=== PATIENT | male | born 1985 | race African-American/Black ===

== ENCOUNTER 2016-10-19 04:49 | Inpatient (IN) | payer OTHER ==
[2016-10-19] VITALS (24 sets, daily range): BP systolic 79–153; BP diastolic 50–105
[~2016-10-19] VITALS: Ht 170.2 cm; Wt 86.2 kg
[2016-10-19 05:15] LABS: MEAN CORPUSCULAR HEMOGLOBIN 27.7 PG (27.0-31.0); MEAN CORPUSCULAR HGB CONC 33.8 G/DL (32.0-36.0); MEAN CORPUSCULAR VOLUME 82 FL (80-99); MEAN PLATELET VOLUME 9.7 FL (6.5-10.1); PLATELET COUNT 186 K/UL (150-450); RED BLOOD COUNT 6.14 M/UL (4.70-6.10); RED CELL DISTRIBUTION WIDTH 12.4 % (11.6-14.8); WHITE BLOOD COUNT 8.5 K/UL (4.8-10.8)
[2016-10-19] MEDS ORDERED: Diltiazem 25mg/5ml IV ONE ×2 (05:15→05:30)
[2016-10-19 05:30] LABS: ACETAMINOPHEN < 10 ug/mL (10-30); ALANINE AMINOTRANSFERASE 37 U/L (3-41); ALBUMIN/GLOBULIN RATIO 0.9 (1.0-2.7); ALCOHOL 207 mg/dL; ANION GAP 23 (5-15); ASPARTATE AMINO TRANSFERASE 22 U/L (5-40); CALCIUM 8.8 mg/dL (8.6-10.2); CARBON DIOXIDE 19 mEQ/L (20-30); CHLORIDE 96 mEQ/L (98-107); CREATININE 0.8 mg/dL (0.7-1.2); GLOMERULAR FILTRATION RATE > 60 mL/min (>60); HEMOLYSIS 4; POTASSIUM 3.3 mEQ/L (3.4-4.9); SODIUM 138 mEQ/L (135-145); TOTAL PROTEIN 8.3 g/dL (6.6-8.7)
[2016-10-19 05:33] LABS: TROPONIN I < 0.30 ng/mL (<=0.30)
[2016-10-19 05:41] LABS: THYROID STIMULATING HORMONE 0.005 uIU/mL (0.300-4.500)
[2016-10-19] MEDS ORDERED: Metoprolol 5mg/5ml Inj IVP SCH (05:45)
--- NOTE | 2016-10-19 05:53 | Emergency Room Report ---
History of Present Illness General Chief Complaint: Alcohol Intoxication Source: Significant Other, EMS (TRE SCHULER M.D.) Present Illness HPI 31-year-old male presents to ED for evaluation. Per EMS patient was drinking at his house and passed out. Friend called 911. Upon arrival patient is intoxicated. Upon arrival patient is tachycardic. Rhythm shows atrial fibrillation to the 170s. Friend at bedside states that patient has history of A. fib and thyroid problems. Patient has not been taking his medication for some time now. Patient is unable to provide any additional history at this time. No reported fevers or chills. No reported chest pain or shortness of breath. no other aggravating or relieving factors. No other associated symptoms (TRE SCHULER M.D.) Allergies: Coded Allergies: No Known Allergies (Unverified , 10/19/16) Patient History Past Medical History: AFib, other - thyroid Past Surgical History: none Pertinent Family History: none Social History: Reports: alcohol use, Denies: drug use, smoking Immunizations: UTD Reviewed Nursing Documentation: PMH: Agreed, PSxH: Agreed (TRE SCHULER M.D.) Nursing Documentation-PMH Hx Cardiac Problems: Yes - AFIB (TRE SCHULER M.D.) Review of Systems All Other Systems: negative except mentioned in HPI (TRE SCHULER M.D.) Physical Exam Vital Signs Date Time Temp Pulse Resp B/P Pulse Ox O2 Delivery O2 Flow Rate FiO2 10/19/16 04:48 98.1 158 18 122/73 96 Room Air Sp02 EP Interpretation: reviewed, normal General Appearance: lethargic Head: normocephalic Eyes: bilateral eye PERRL, bilateral eye normal inspection ENT: normal ENT inspection Neck: normal inspection Respiratory: chest non-tender, lungs clear, normal breath sounds, speaking full sentences Cardiovascular #1: tachycardia Gastrointestinal: normal inspection Rectal: deferred Genitourinary: no CVA tenderness Musculoskeletal: normal inspection Neurologic: other - altered Psychiatric: other - altered Skin: normal inspection Lymphatic: normal inspection (TRE SCHULER M.D.) Medical Decision Making Diagnostic Impression: Primary Impression: Atrial fibrillation with rapid ventricular response Additional Impression: Acute alcoholic intoxication Qualified Codes: F10.129 - Alcohol abuse with intoxication, unspecified ER Course Received signout from Dr Schuler to admit patient HR is 110-120. BP stable. Patient asymptomatic Patient approved for admission to Panel. Dr Castañeda accepting on behalf of Dr Sepulveda at 809am Requesting free T4 and Mg levels which I ordered She also requested JOSE admission which we placed (JESSICA GAMEZ M.D.) EKG Diagnostic Results Rate: tachycardiac - afib with RVR Rhythm: other - afib ST Segments: no acute changes ASA given to the pt in ED: No (TRE SCHULER M.D.) Rhythm Strip Diag. Results EP Interpretation: yes Rhythm: NSR, no PVC's, no ectopy (TRE SCHULER M.D.) Last Vital Signs Date Time Temp Pulse Resp B/P Pulse Ox O2 Delivery O2 Flow Rate FiO2 10/19/16 05:28 155 103/45 10/19/16 05:14 98.1 18 96 Room Air Status: improved (TRE SCHULER M.D.) Disposition: ADMITTED INPATIENT Condition: Critical TRE SCHULER M.D. Oct 19, 2016 05:53 JESSICA GAMEZ M.D. Oct 19, 2016 08:10
[2016-10-19] MEDS ORDERED: UNOBMED (06:29)
[2016-10-19] MEDS ORDERED: Metoprolol 25mg tab ORAL ONE (08:15)
[2016-10-19] MEDS ORDERED: Methimazole 5mg tab ORAL SCH ×2 (09:00→13:45)
[2016-10-19] MEDS ORDERED: Hydrocortisone 100mg Inj IV ONE (09:00)
--- NOTE | 2016-10-19 09:20 | Emergency Room Report ---
History of Present Illness General Chief Complaint: Alcohol Intoxication Source: Significant Other, EMS Present Illness Allergies: Coded Allergies: No Known Allergies (Unverified , 10/19/16) Nursing Documentation-PMH Hx Cardiac Problems: Yes - AFIB Physical Exam Vital Signs Date Time Temp Pulse Resp B/P Pulse Ox O2 Delivery O2 Flow Rate FiO2 10/19/16 04:48 98.1 158 18 122/73 96 Room Air Procedures Critical Care Time Critical Care Time CC Time: 35 minutes 31YOM with history of hyperthyroid, non-compliant with methimazole Acute ETOH intox Found to be in Atrial fib with RVR, refractory to Dilt, lopressor Low TSH, elevated free T4 Alvarado/Wartofsky score of 65 suggestive of thyroid storm Tx includes Esmolol gtt, hydrocortisone, methimazole, potassium iodide 1 hour after methimazole Endorsed to ICU CC time includes discussion with hospitalist, review of labs, imaging, previous ED physician charting Does not include procedures Medical Decision Making Diagnostic Impression: Primary Impression: Atrial fibrillation with rapid ventricular response Additional Impressions: Acute alcoholic intoxication Qualified Codes: F10.129 - Alcohol abuse with intoxication, unspecified Thyrotoxicosis Qualified Codes: E05.90 - Thyrotoxicosis, unspecified without thyrotoxic crisis or storm Hyperthyroidism Thyroid storm Qualified Codes: E05.91 - Thyrotoxicosis, unspecified with thyrotoxic crisis or storm ER Course After review of labs, patient has markedly low TSH and elevated T4 HR has been refractory to Dilt and Metoprolol Concern for thyrotoxicosis. No sign of goiter Alvarado/Wartofsky score of 65 suggestive of thyroid storm Points: HR 140 (25 - Will tx with hydrocortisone to block T4 to T3 conversion - Will tx with methimazole to inhibit further hormone release - CXR suggestive of ILD pattern, cardiomegaly, pulm edema. Will give Lasix - In discussion with Dr Castañeda, will also give empiric Abx to cover for possible infection as cause. No obvious Lobar PNA on CXR; UA is pending - Will start esmolol gtt - Upgrade to ICU - Dr Castañeda to consult Human Capital Analyst EKG Diagnostic Results Rate: tachycardiac, other - atrial fib with RVR ST Segments: no acute changes Rhythm Strip Diag. Results EP Interpretation: yes Rate: 147 Rhythm: no PVC's, no ectopy Chest X-Ray Diagnostic Results EP Interpretation: Yes Findings: no pneumothorax, other - Cardiomegaly, pulm edema Number of Views: 1 Last Vital Signs Date Time Temp Pulse Resp B/P Pulse Ox O2 Delivery O2 Flow Rate FiO2 10/19/16 08:39 131 108/74 10/19/16 08:30 18 97 Room Air 10/19/16 07:15 98.0 Status: improved Disposition: ADMITTED INPATIENT Condition: Critical Referrals: NON PHYSICIAN (PCP) JESSICA GAMEZ M.D. Oct 19, 2016 09:20
[2016-10-19] MEDS ORDERED: LORazepam Inj 2mg/ml 1ml IV PRN (10:45)
[2016-10-19] MEDS ORDERED: Metoclopramide 10mg/2ml Inj IVP ONE (10:45)
[2016-10-19] MEDS ORDERED: Thiamine HCl 100 MG, Folic Acid 1 MG, Magnesium Sulfate 2,000 MG, Multivitamin - 12 Inj... IV ONE ×5 (10:45)
[2016-10-19] MEDS ORDERED: Aspirin EC 81mg tab ORAL SCH (11:30)
[2016-10-19] MEDS ORDERED: Zosyn 3.375gm inj ONE (11:36)
[2016-10-19] MEDS: Enoxaparin 100mg Inj SUBQ SCH ×2 (11:40→22:19)
[2016-10-19] MEDS ORDERED: Piperacillin/Tazobactam 3.375 GM in NS 110 ML IVPB ONE (12:00)
[2016-10-19] MEDS ORDERED: Thiamine HCl 100mg/ml Inj ONE (12:04)
[2016-10-19] MEDS ORDERED: [UNRECOGNIZED DRUG - OTHER] IV SCH ×8 (13:00)
[2016-10-19] MEDS ORDERED: MULTIVITAMIN IV SCH (13:00)
[2016-10-19] MEDS ORDERED: Thiamine 100 MG ivpb IVPB SCH ×2 (13:00)
[2016-10-19] MEDS ORDERED: MAGNESIUM SULFATE IV SCH (13:00)
[2016-10-19] MEDS ORDERED: FOLIC ACID IV SCH (13:00)
[2016-10-19] MEDS ORDERED: [UNRECOGNIZED DRUG - OTHER] IV SCH (13:00)
--- NOTE | 2016-10-19 15:41 | Cardiology Progress Note ---
Subjective Subjective [id number] Objective Last 24 Hour Vital Signs Date Time Temp Pulse Resp B/P Pulse Ox O2 Delivery O2 Flow Rate FiO2 10/19/16 15:00 157 10/19/16 15:00 98.9 155 30 123/78 98 Room Air 10/19/16 11:00 97.3 131 18 104/86 100 Room Air 10/19/16 10:00 130 20 102/85 97 Room Air 10/19/16 09:30 142 22 119/93 99 Room Air 10/19/16 09:00 133 19 116/91 97 Room Air 10/19/16 08:39 131 108/74 10/19/16 08:30 134 18 128/99 97 Room Air 10/19/16 08:27 131 19 108/74 97 Room Air 10/19/16 08:00 133 17 120/60 95 Room Air 10/19/16 07:35 131 20 134/51 95 Room Air 10/19/16 07:15 98.0 117 14 100/75 97 Room Air 10/19/16 06:44 98.1 106 12 79/50 95 Room Air 10/19/16 05:52 135 120/68 10/19/16 05:48 98.1 141 18 120/68 97 Room Air 10/19/16 05:28 155 103/45 10/19/16 05:14 98.1 180 18 112/70 96 Room Air 10/19/16 05:13 180 112/70 10/19/16 04:48 98.1 158 18 122/73 96 Room Air Intake and Output 10/18/16 10/19/16 19:00 07:00 Intake Total 2000 ml Output Total 200 ml Balance 1800 ml IV Total 2000 ml Output Urine Total 200 ml # Voids 1 Laboratory Tests Test 10/19/16 05:10 10/19/16 05:41 White Blood Count 8.5 K/UL (4.8-10.8) Red Blood Count 6.14 M/UL (4.70-6.10) H Hemoglobin 17.0 G/DL (14.2-18.0) Hematocrit 50.4 % (42.0-52.0) Mean Corpuscular Volume 82 FL (80-99) Mean Corpuscular Hemoglobin 27.7 PG (27.0-31.0) Mean Corpuscular Hemoglobin Concent 33.8 G/DL (32.0-36.0) Red Cell Distribution Width 12.4 % (11.6-14.8) Platelet Count 186 K/UL (150-450) Mean Platelet Volume 9.7 FL (6.5-10.1) Neutrophils (%) (Auto) % (45.0-75.0) Lymphocytes (%) (Auto) % (20.0-45.0) Monocytes (%) (Auto) % (1.0-10.0) Eosinophils (%) (Auto) % (0.0-3.0) Basophils (%) (Auto) % (0.0-2.0) Sodium Level 138 mEQ/L (135-145) Potassium Level 3.3 mEQ/L (3.4-4.9) L Chloride Level 96 mEQ/L (98-107) L Carbon Dioxide Level 19 mEQ/L (20-30) L Anion Gap 23 (5-15) H Blood Urea Nitrogen 9 mg/dL (7-23) Creatinine 0.8 mg/dL (0.7-1.2) Estimat Glomerular Filtration Rate > 60 mL/min (>60) Glucose Level 151 mg/dL (74-106) H Calcium Level 8.8 mg/dL (8.6-10.2) Magnesium Level 1.7 mg/dL (1.7-2.5) Total Bilirubin 0.3 mg/dL (0.0-1.2) Aspartate Amino Transf (AST/SGOT) 22 U/L (5-40) Alanine Aminotransferase (ALT/SGPT) 37 U/L (3-41) Alkaline Phosphatase 114 U/L (40-129) Troponin I < 0.30 ng/mL (<=0.30) Total Protein 8.3 g/dL (6.6-8.7) Albumin 4.1 g/dL (3.5-5.2) Globulin 4.2 g/dL Albumin/Globulin Ratio 0.9 (1.0-2.7) L Thyroid Stimulating Hormone (TSH) 0.005 uIU/mL (0.300-4.500) Free Thyroxine 4.64 ng/dL (0.86-1.85) H Salicylates Level < 1 mg/dL (10-30) L Acetaminophen Level < 10 ug/mL (10-30) L Serum Alcohol 207 mg/dL Urine Opiates Screen Negative (NEGATIVE) Urine Barbiturates Screen Negative (NEGATIVE) Phencyclidine (PCP) Screen Negative (NEGATIVE) Urine Amphetamines Screen Negative (NEGATIVE) Urine Benzodiazepines Screen Negative (NEGATIVE) Urine Cocaine Screen Negative (NEGATIVE) Urine Marijuana (THC) Screen Negative (NEGATIVE) COLEEN PULIDO Oct 19, 2016 15:41
[2016-10-19] MEDS: KCl 10% 40mEq/30ml liquid NG SCH (15:58)
[2016-10-19] MEDS: Propranolol 40mg tab ORAL SCH ×2 (16:21→22:06)
[2016-10-19] MEDS: Pantoprazole Inj IVP SCH (18:05)
[2016-10-19 18:29] LABS: TROPONIN I < 0.30 ng/mL (<=0.30)
--- NOTE | 2016-10-19 19:49 | History and Physical Report ---
DATE OF ADMISSION: 10/19/2016 CHIEF COMPLAINT: Alcohol intoxication, AFib and RVR, nausea, and vomiting. HISTORY OF PRESENT ILLNESS: This is a 31-year-old man with history of chronic alcoholic, hyperthyroid not adherent with methimazole, AFib on aspirin, not adherent the medication and then not on anticoagulant, and bipolar disorder. The patient was sent by the EMS for nausea and vomiting. I saw the patient in the ER and according to the patient's , he drank binge of alcohol yesterday with hang-on with a friend and then since last night, he started vomiting and it continued this morning, so they called 911 and they sent the patient to the ER. In the ER, the patient was found to have tachycardia with AFib with RVR, heart rate of 170. The patient got Cardizem drip. The tachycardia was not resolved, which was improved a little bit with metoprolol and the patient was also found to have very low TSH and high free T4. The ER attending gave hydrocortisone and also methimazole and esmolol drip. The patient had vomiting in front of me and the patient states that he has been diagnosed with AFib with RVR in 2009, but he is not taking any medication because he does not like metoprolol and also he was diagnosed with hyperthyroidism since 2006 and he is on methimazole and a couple of days ago, the patient had diarrhea and no more diarrhea at all. Denies any chest pain, any abdominal pain, headache, or dizziness. According to the ER attending, the chest x-ray showed that the patient has pulmonary edema and Lasix was planned to be given. PAST MEDICAL HISTORY: 1. Chronic alcoholic, started drinking at age of 23 and once a week per and huge drink yesterday. 2. AFib, not on any anticoagulant and not adherent with any aspirin or metoprolol. 3. Hyperthyroidism, not adherent on methimazole. 4. Bipolar disorder. 5. Depression disorder. PAST SURGICAL HISTORY: None. ALLERGIES: No known drug allergies. MEDICATIONS: Home medication, the patient is supposed to take aspirin, metoprolol, and methimazole, but never adherent with medication. FAMILY HISTORY: No thyroid problem in the family and no heart issue in the family. SOCIAL HISTORY: The patient is a chronic smoker, smoked at the age of 17, smoker of one pack a day. Chronic alcoholic, once a week, and huge drink was yesterday. Denies any marijuana or opiate use. REVIEW OF SYSTEMS: Fourteen-point ROS was negative except as in the HPI. PHYSICAL EXAMINATION: VITAL SIGNS: Blood pressure 108/74, heart rate 113, respiratory rate 18, oxygen saturation 97% on room air, and temperature 98 degrees. GENERAL: The patient is not in acute distress. The patient has intractable vomiting. Alert, awake, and oriented x3. HEENT: Atraumatic and normocephalic. NECK: Supple. Trachea is in the midline. LUNGS: Bilateral basilar crackles present. CARDIOVASCULAR: S1 and S2. Irregularly irregular. No murmur, rub, or gallop. ABDOMEN: Soft and nontender. Bowel sounds present. EXTREMITIES: No edema. NEUROLOGIC: Mild hand tremor present and tremor present. LABORATORY AND DIAGNOSTIC DATA: White count 8.5, hemoglobin 17.0, and platelet count 186,000. Sodium 138, potassium 3.3, chloride 96, bicarbonate 19, BUN 9, creatinine 0.8, and glucose 151. TSH 0.005 and free T4 is 4.64. Magnesium 1.7. Calcium 8.8. The urine drug screen negative. His alcohol is 207. ASSESSMENT: 1. Alcohol intoxication. 2. Atrial fibrillation with rapid ventricular response. 3. Thyroid storm. 4. History of thyroid and not adherent on the medication. 5. History of atrial fibrillation, not adherent with the medication and not on anticoagulant. 6. Bipolar disorder. 7. Depression. 8. Metabolic acidosis. 9. Intractable nausea and vomiting. PLAN: IV fluids and also banana bag. Endocrinology consult and cardiology consult. We will continue steroid, antibiotic, and also methimazole. Echocardiogram. I also discussed and educated for the smoking and also alcohol drinking, and the importance of the adherence of the medications especially for the thyroid and AFib to the patient and the . We would admit the patient to the ICU. Love Cielo Neal M.D. DR: IRMA JOB#: [id number] CC: DIDI
[2016-10-19] MEDS ORDERED: Heparin 5000 units/ml inj SUBQ SCH (21:00)
--- NOTE | 2016-10-19 21:59 | Consultation ---
DATE OF CONSULTATION: CARDIOLOGY CONSULTATION CONSULTING PHYSICIAN: Daisha Beck M.D. PATIENT IDENTIFICATION: The patient is a 31-year-old male. REASON FOR EVALUATION: Atrial fibrillation with rapid ventricular rate. HISTORY OF PRESENT ILLNESS: The history of present illness is taken from the patient, who is slightly lethargic but arousable and appropriate. He told me that he drinks alcohol, lots of whisky every weekend and he goes in atrial fibrillation at times, but it then goes back normal. He does not drink during the weekdays and does not drink anything else. He denies use of any other recreational drugs, but he smokes cigarette. Yesterday, he had used whisky and then he started feeling these palpitations, which would not go away. He also said that his doctor told him to take methimazole because of his thyroid issues, but he did not regularly take it and he also was given metoprolol also because of his atrial fibrillation. PAST MEDICAL HISTORY: Otherwise is unremarkable. He has some tendon injury. PAST SURGICAL HISTORY: Tendon surgery. ALLERGIES: Known. MEDICATIONS: Prescribed methimazole and metoprolol, but he is not compliant. HABITS: As in the history of present illness. SOCIAL HISTORY: He is independent. REVIEW OF SYSTEMS: There is no fever, no cough, and no sputum production. No any positives. PHYSICAL EXAMINATION: GENERAL: This is a comfortable-appearing gentleman, resting. VITAL SIGNS: Blood pressure 114/65 and a heart rate of 156. His temperature is normal. His oxygen saturation is 98% on room air. HEENT: PERRLA. Extraocular muscles intact. NECK: Supple. Thyroid is nontender, diffusely slightly enlarged. No nodules palpable. Carotid, normal upstroke. Neck veins are not distended. LUNGS: Few crackles. HEART: Regular with accented A2, rapid. There is no S3 audible. PMI is in the sixth intercostal space in midclavicular line. ABDOMEN: Soft, nontender. Bowel sounds are present. EXTREMITIES: Lower extremities, no edema. Distal pulses palpable bilaterally. NEUROLOGICAL: He is intact. DIAGNOSTIC DATA: His EKG shows left ventricular hypertrophy with a heart rate of 180 beats per minute. Chest x-ray, I could not see it, but it apparently by the ER report showed pulmonary venous congestion. LABORATORY DATA: His laboratories are all reviewed. His potassium was 3.3. His glucose was 151. Albumin is 0.9. TSH is 0.005, T4 is 464. His CBC is unremarkable. He has positive alcohol in his blood. IMPRESSION AND RECOMMENDATION: Atrial fibrillation with a rapid ventricular rate caused by most likely hyperthyroidism and probably precipitated also by alcohol. By physical exam, there is no evidence of overt heart failure. I am going to give him Inderal for his hyperthyroidism and atrial fibrillation digoxin and he already was on anticoagulation. We are going to check his troponin, we will follow his echocardiogram. 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 Magnesium was 1.7. This is an intensive care unit level of care for this patient. I also discussed with him the importance of compliance with medications and to quit alcohol drinking and smoke. More than one hour was spent. Daisha Beck M.D. DR: SCARLET JOB#: [id number] CC:
[2016-10-19] MEDS: Zosyn 3.375gm q8h **Extended infusion IVPB SCH ×2 (22:07)
[2016-10-19] MEDS: D5 1/2NS w/KCl 20mEq 1,000 ML IV SCH (22:20)
[2016-10-20] VITALS (14 sets, daily range): BP systolic 109–144; BP diastolic 58–96
[2016-10-20 02:28] LABS: BASOPHILS % (AUTO) 0.8 % (0.0-2.0); EOSINOPHILS % (AUTO) 0.3 % (0.0-3.0); LYMPHOCYTES % (AUTO) 53.3 % (20.0-45.0); MEAN CORPUSCULAR HEMOGLOBIN 27.4 PG (27.0-31.0); MEAN CORPUSCULAR HGB CONC 33.6 G/DL (32.0-36.0); MEAN CORPUSCULAR VOLUME 82 FL (80-99); MEAN PLATELET VOLUME 9.3 FL (6.5-10.1); MONOCYTES % (AUTO) 8.2 % (1.0-10.0); NEUTROPHILS % (AUTO) 37.6 % (45.0-75.0); PLATELET COUNT 168 K/UL (150-450); RED BLOOD COUNT 5.22 M/UL (4.70-6.10); RED CELL DISTRIBUTION WIDTH 12.6 % (11.6-14.8); WHITE BLOOD COUNT 9.6 K/UL (4.8-10.8)
[2016-10-20 02:40] LABS: TROPONIN I < 0.30 ng/mL (<=0.30)
[2016-10-20 02:44] LABS: ANION GAP 12 (5-15); CALCIUM 8.9 mg/dL (8.6-10.2); CARBON DIOXIDE 25 mEQ/L (20-30); CHLORIDE 102 mEQ/L (98-107); CREATININE 0.8 mg/dL (0.7-1.2); GLOMERULAR FILTRATION RATE > 60 mL/min (>60); HEMOLYSIS 6; MAGNESIUM 1.9 mg/dL (1.7-2.5); PHOSPHORUS 3.4 mg/dL (2.5-4.8); POTASSIUM 4.5 mEQ/L (3.4-4.9); SODIUM 139 mEQ/L (135-145)
[2016-10-20] MEDS ORDERED: PROPRANOLOL 80 MG ORAL SCH ×2 (06:00→08:00)
[2016-10-20] MEDS: Zosyn 3.375gm q8h **Extended infusion IVPB SCH ×2 (06:10)
[2016-10-20] MEDS: D5 1/2NS w/KCl 20mEq 1,000 ML IV SCH (06:11)
[2016-10-20] MEDS: Propylthiouracil 50mg tab ORAL SCH ×2 (07:29→12:36)
[2016-10-20] MEDS: Pantoprazole Inj IVP SCH (08:59)
[2016-10-20] MEDS ORDERED: Propranolol 40mg tab ORAL SCH (09:00)
[2016-10-20] MEDS: KCl 10% 40mEq/30ml liquid NG SCH (09:00)
[2016-10-20] MEDS: Enoxaparin 100mg Inj SUBQ SCH (09:01)
--- NOTE | 2016-10-20 09:13 | Cardiology Report ---
APPROVED REPORT EXAM: Two-dimensional and M-mode echocardiogram with Doppler and color Doppler. INDICATION Atrial Fibrillation M-Mode DIMENSIONS IVSd0.8 (0.7-1.1cm)Left Atrium (MM)3.9 (1.6-4.0cm) LVDd4.7 (3.5-5.6cm)Aortic Root2.7 (2.0-3.7cm) PWd0.8 (0.7-1.1cm)Aortic Cusp Exc.2.1 (1.5-2.0cm) LVDs3.1 (2.5-4.0cm) PWs1.1 cm Normal left ventricular chamber size, systolic function and wall motion. Left ventricular ejection fraction estimated to be 55-60 %. Mild left ventricular hypertrophy. No evidence of pericardial fat or effusion. Right cardiac chamber sizes are within normal limits. Mild left atrial enlargement by 2D. Focal aortic valve sclerosis with adequate cusp excursion Thickened mitral valve leaflets with normal excursion. Mild mitral annulus and aortic root calcification. Pulmonic valve is well visualized. Normal tricuspid valve structure. IVC is normal in size with physiologic collapse. A color flow and spectral Doppler study was performed and revealed: No aortic regurgitation. No mitral regurgitation. Left ventricular diastolic dysfunction not obtainable due to A-FIB. Moderate tricuspid regurgitation. Tricuspid systolic velocities suggests peak right ventricular systolic pressure of 46 mmHg Consistent with moderate pulmonary hypertension. Pulmonic regurgitation present.
--- NOTE | 2016-10-20 10:03 | Cardiology Report ---
APPROVED REPORT EKG Measurement Heart [id number] Atrial fibrillation with rapid ventricular response Single VPC Early repolarization Abnormal ECG
[2016-10-20 10:36] LABS: TROPONIN I < 0.30 ng/mL (<=0.30)
--- NOTE | 2016-10-20 10:53 | Diagnostic Imaging Report ---
Clinical history: Cough, acute dyspnea, reported history of thyrotoxicosis. Technique: Portable AP chest radiograph was obtained. Comparison: None Findings: Lung volumes are low with probable basilar atelectasis. The cardiomediastinal silhouette appears mildly enlarged. Scattered interstitial opacities throughout both lungs may represent mild interstitial edema or interstitial pneumonia. There is no clinically significant pneumothorax or pleural effusion. The bony thorax is unremarkable. Impression: Suspected mild cardiomegaly with mild interstitial edema or interstitial pneumonia in the setting of low lung volumes. Consider clinical correlation and short-term followup PA and lateral chest radiographs in full inspiration for a more optimal evaluation.
--- NOTE | 2016-10-20 14:17 | General Progress Note ---
Assessment/Plan Assessment/Plan No evidence of "Thyroid Storm" per Endo as no AMS or fever. OK to DC home on PTU and Inderal Subjective Allergies: Coded Allergies: No Known Allergies (Unverified , 10/19/16) Subjective No c/o Objective Last 24 Hour Vital Signs Date Time Temp Pulse Resp B/P Pulse Ox O2 Delivery O2 Flow Rate FiO2 10/20/16 13:00 99 12 119/79 100 Room Air 10/20/16 12:00 97.9 136 22 109/71 96 Room Air 10/20/16 12:00 146 10/20/16 11:00 135 18 124/92 98 Room Air 10/20/16 10:00 137 22 120/90 96 Room Air 10/20/16 09:00 142 144/96 10/20/16 09:00 125 18 138/86 98 Room Air 10/20/16 08:00 139 10/20/16 08:00 97.9 140 24 144/96 97 Room Air 10/20/16 07:00 142 20 130/85 97 Room Air 10/20/16 06:00 137 22 132/92 97 Room Air 10/20/16 05:00 141 22 124/71 97 Room Air 10/20/16 04:00 98.6 142 24 121/73 97 Room Air 10/20/16 04:00 142 10/20/16 03:00 142 24 122/72 98 Room Air 10/20/16 02:00 141 26 130/85 98 Room Air 10/20/16 01:00 138 21 144/87 98 Room Air 10/20/16 00:00 139 10/20/16 00:00 136 23 114/58 97 Room Air 10/19/16 23:00 132 24 118/62 99 Room Air 10/19/16 22:06 156 138/94 10/19/16 22:00 156 27 138/94 94 Room Air 10/19/16 21:00 153 27 128/105 98 Room Air 10/19/16 20:00 97.9 157 24 116/53 97 Room Air 10/19/16 20:00 157 10/19/16 19:00 135 25 112/77 97 Room Air 10/19/16 18:00 148 28 133/61 97 Room Air 10/19/16 17:00 150 28 138/54 98 Room Air 10/19/16 16:21 152 153/62 2/19/17 16:00 152 10/19/16 16:00 98.0 152 28 153/62 97 Room Air 10/19/16 15:00 157 10/19/16 15:00 98.9 155 30 123/78 98 Room Air 10/19/16 14:30 97.3 151 22 123/97 99 Room Air Intake and Output 10/19/16 10/20/16 19:00 07:00 Intake Total 2343.4 ml 1687.5 ml Output Total 1501 ml 1200 ml Balance 842.4 ml 487.5 ml Intake Oral 1250 ml 350 ml IV Total 1093.4 ml 1337.5 ml Output Urine Total 1500 ml 1200 ml Stool Total 1 ml # Voids 3 2 Laboratory Tests 10/19/16 17:46: Pro-B-Type Natriuretic Peptide 446H 10/19/16 17:50: Troponin I < 0.30 10/20/16 02:00: Troponin I < 0.30, White Blood Count 9.6, Red Blood Count 5.22, Hemoglobin 14.3 , Hematocrit 42.6, Mean Corpuscular Volume 82, Mean Corpuscular Hemoglobin 27.4 , Mean Corpuscular Hemoglobin Concent 33.6, Red Cell Distribution Width 12.6, Platelet Count 168, Mean Platelet Volume 9.3, Neutrophils (%) (Auto) 37.6L, Lymphocytes (%) (Auto) 53.3H, Monocytes (%) (Auto) 8.2, Eosinophils (%) (Auto) 0.3, Basophils (%) (Auto) 0.8, Sodium Level 139, Potassium Level 4.5, Chloride Level 102, Carbon Dioxide Level 25, Anion Gap 12, Blood Urea Nitrogen 7, Creatinine 0.8, Estimat Glomerular Filtration Rate > 60, Glucose Level 108H, Calcium Level 8.9, Phosphorus Level 3.4, Magnesium Level 1.9 10/20/16 10:00: Troponin I < 0.30 Height (Feet): 5 Height (Inches): 7.00 Weight (Pounds): 190 Objective Cv RR Lungs CTa Abd SNT. BS + E No CCE ALICIA YANEZ Oct 20, 2016 14:17
[2016-10-20] MEDS ORDERED: Tubing IV Secondary IV ONE (14:52)
--- NOTE | 2016-10-21 13:58 | Discharge Summary ---
Discharge Summary Hospital Course Date of Admission Oct 19, 2016 at 07:26 Date of Discharge Oct 20, 2016 at 14:53 Admitting Diagnosis afib, Thyrotoxicosis HPI Jann Norris is a 31 year old male who was admitted on Oct 19, 2016 at 07:26 for Afib, Thyrotoxicosis Hospital Course DC SUMMARY DICTATED # [id number] scripts given for PTU 100 mg po q6 Propranolol 80 mg q 8 Coumadin 3 mg po daily fup with PMD on Thursday for INR check up Discharge Condition Upon Discharge: stable Discharge Disposition Patient was discharged to Home () Discharge Diagnoses: Butch ([facility]),Dejah SCHROEDER Oct 21, 2016 13:58
--- NOTE | 2016-10-21 13:59 | Discharge Instructions ---
Discharge Instructions Discharge Instructions Follow up with: PMD on Thursday for INR check Call MD/Return to Hospital if: palpiattiaons, chest pain, SOB, bleeding Diet: regular Activity: as tolerated Special Instructions stop alcohol For Congestive Heart Failure Reminder Report to your physician any weight gain of 5 pounds or more in one week. Butch ([facility]),Dejah SCHROEDER Oct 21, 2016 13:59
--- NOTE | 2016-10-22 03:28 | Discharge Summary 2 SIG ---
DATE OF ADMISSION: 10/19/2016 DATE OF DISCHARGE: 10/20/2016 The patient was admitted under Dr. Beatty. REASON FOR ADMISSION: 31-year-old male presented to emergency room for evaluation. Per paramedics, the patient was drinking at his home and passed out. His friend called paramedics. Upon arrival, the patient was intoxicated and tachycardic. Rhythm strip revealed atrial fibrillation with rapid ventricular response. Heart rate was 170. Friend reported that the patient had history of atrial fibrillation, thyroid problem, and was not always compliant with the medication regimen. At the time of arrival to the emergency department, the patient was not able to provide much of additional information. He reported no fevers. No chills. No chest pain. No shortness of breath. Workup in the emergency room revealed tachycardia 158, low TSH, and high free T4. TSH was 0.005 and free T4 was 4.64. No leukocytosis. Stable hemoglobin and hematocrit. Heart rate was refractory to metoprolol and diltiazem. EKG in ER revealed atrial fibrillation with rapid ventricular response. Urine tox screen was negative. Serum alcohol level elevated to 207. Chest x-ray revealed mild cardiomegaly with mild interstitial edema or interstitial pneumonia. Patient was afebrile. The patient was given one dose of hydrocortisone and one dose of methimazole . Started on esmolol drip for thyroid storm and transferred to ICU for further management. ADMITTING DIAGNOSES: Includes, 1. Atrial fibrillation with rapid ventricular response. 2. Acute alcohol intoxication. 3. Thyrotoxicosis. 4. Possible thyroid storm. 5. Hyperthyroidism. HOSPITAL COURSE: The patient admitted to intensive care unit. The patient was started on IV fluids with a banana bag. Endocrinology and Cardiology consult were requested. The patient was started on empiric antibiotics to cover for possible pneumonia. Chemist Intern seen the patient and placed him on Inderal. According to the urban design consultant, the patient was not in thyroid storm. Continue new adjusted dose of Methimazole and Inderal at home. Chemist Intern cleared the patient for discharge. Magazine Keeper seen the patient. Echocardiogram revealed preserved ejection fraction of 55% to 60% and right ventricular systolic pressure of 46 consistent with moderate pulmonary hypertension. There was also evidence of moderate tricuspid regurgitation and mild left ventricular hypertrophy. Digoxin was given to control the heart rate by tie binder. Prior to discharge, the patient's heart rate was 99. He had no tachypnea. Blood pressure was stable. Pulse oximetry 100% on room air. The patient was cleared for discharge by urban design consultant, who concluded that patient was not in the thyroid storm. . Mental status back to baseline. The patient was counseled on abstinence from the alcohol and compliance with the medication regimen. Due to the rapid and unexpected improvement in the patient's condition, the patient was discharged home in one day DISCHARGE DIAGNOSES: 1. Atrial fibrillation with rapid ventricular response. 2. Acute alcohol intoxication. 3. Thyrotoxicosis. 4. Possible thyroid storm. 5. Hyperthyroidism. 6. Moderate pulmonary hypertension. 7. Moderate tricuspid regurgitation. 8. Bipolar disorder with depression. DISCHARGE MEDICATIONS: See medication reconciliation list. DISCHARGE INSTRUCTIONS: The patient was discharged home. Followup with the primary medical doctor. Encouraged compliance with methimazole, Inderal, as well as cardiac medications. The patient needs to continue anticoagulation (Lovenox and Coumadin) , which he has at home. Fup with PCP in 2-3 days for INR check, Anjana Beatty M.D. I have been assigned to dictate discharge summary on this account and I was not involved in the patient's management. Dejah LaurentNewyork-Presbyterian Lower Manhattan HospitalSussy N.PVijay DR: SANTOS JOB#: [id number] CC: DIDI
== END 2016-10-20 14:53 | disposition home or self-care (01) | DRG 308 ==
LOC: EDBD 04:49 → EMR 06:05 → EDBEDREQ 06:35 → ICU 07:26 → EDBEDREQ 08:57 → EDBEDREQSVC 09:38 → EDBEDREQ 09:39
DX: I48.91 Unspecified atrial fibrillation (principal); E05.91 Thyrotoxicosis, unspecified with thyrotoxic crisis or storm; F10.129 Alcohol abuse with intoxication, unspecified; F31.9 Bipolar disorder, unspecified; Y90.7 Blood alcohol level of 200-239 mg/100 ml
CPT/HCPCS: 36415; 71010; 80048; 80053; 80300; 80329; 82962; 83735; 83880; 84100; 84439; 84443; 84484; 85025; 93005; 93306; J2405; J2765; J8499